=== PATIENT | male | born 1990 | race Two or more races ===

== ENCOUNTER 2017-09-26 20:31 | Emergency (ER) | payer SELFPAY ==
[~2017-09-26] VITALS: Ht 177.8 cm; Wt 67.6 kg
[2017-09-26] MEDS ORDERED: BACITRACIN ZINC OINT UDPKT TOP ONE (22:45)
[2017-09-26] MEDS ORDERED: LIDOCAINE HCL/PF 1% 10 MG/ML 30ML VIAL INFIL ONE (22:45)
[2017-09-26] MEDS ORDERED: LIDOCAINE HCL/PF 1% 10 MG/ML 5ML VIAL IJ STA (22:51)
[2017-09-26 23:40] VITALS: BP 114/70
== END 2017-09-27 | disposition home or self-care (01) ==
LOC: ER 20:31
DX: S01.21XA Laceration without foreign body of nose, initial encounter (principal); X58.XXXA Exposure to other specified factors, initial encounter; Y93.89 Activity, other specified; Y92.89 Other specified places as the place of occurrence of the external cause; Y99.8 Other external cause status
CPT/HCPCS: 12011; 99283; J3490; Z7610

== ENCOUNTER 2017-10-02 20:18 | Emergency (ER) | payer SELFPAY ==
[~2017-10-02] VITALS: Ht 177.8 cm; Wt 70.0 kg
[2017-10-02 20:28] VITALS: BP 105/82
== END 2017-10-02 22:00 | disposition left against medical advice (07) ==
LOC: ER 21:30
DX: S01.21XD Laceration without foreign body of nose, subsequent encounter (principal); V87.8XXD Person injured in other specified noncollision transport accidents involving motor vehicle (traffic), subsequent encounter

== ENCOUNTER 2019-01-07 14:16 | Emergency (ER) | payer MEDICAID ==
[~2019-01-07] VITALS: Ht 177.8 cm; Wt 70.0 kg
[2019-01-07 15:56] VITALS: BP 125/73
== END 2019-01-07 18:51 | disposition left against medical advice (07) ==
LOC: ER 14:16
DX: R07.89 Other chest pain (principal); Z53.21 Procedure and treatment not carried out due to patient leaving prior to being seen by health care provider